=== PATIENT | female | born 1995 | race African-American/Black ===

== ENCOUNTER 2017-04-02 17:47 | Emergency (ER) | payer OTHER ==
[~2017-04-02] VITALS: Ht 172.7 cm; Wt 79.4 kg
[~2017-04-02 17:47] MED LIST: BACTRIM DS TAB1 EACH PO; MONONESSA1 EACH PO; NOHOMEMEDICATIONS; NORCO 5-325 TA1 EACH PO; ORTHO TRI-CYCL1 EACH PO
[2017-04-02 17:54] VITALS: BP 149/81
[2017-04-02 18:10] LABS: URINE BILIRUBIN NEGATIVE (Negative); URINE BLOOD NEGATIVE (Negative); URINE COLOR YELLOW; URINE GLUCOSE-RANDOM* NEGATIVE (Negative); URINE KETONES NEGATIVE (Negative); URINE LEUKOCYTES-REFLEX NEGATIVE (Negative); URINE PROTEIN (DIPSTICK) NEGATIVE (Negative); URINE SPECIFIC GRAVITY 1.015 (1.003-1.035); URINE UROBILINOGEN 0.2 E.U./dl (0.2-1.0)
[2017-04-02] MEDS ORDERED: FLAGYL500 MG PO (18:35)
[2017-04-03 19:07] LABS: CHLAMYDIA TRACHOMATIS-PCR Negative (Negative); NEISSERIA GONORRHEA-PCR Negative (Negative)
== END 2017-04-02 19:00 | disposition home or self-care (01) ==
LOC: ER 17:47
PROVIDERS: Physician Assistant
DX: N76.0 Acute vaginitis (principal); Z20.2 Contact with and (suspected) exposure to infections with a predominantly sexual mode of transmission